=== PATIENT | male | born 1995 | race Caucasian/White ===

== ENCOUNTER 2017-08-29 09:00 | Outpatient (RCR) | payer OTHER, BC, SELFPAY | END 2017-08-29 16:14 | disposition home or self-care (01) | LOC: PT 09:00 | PROVIDERS: Family Provider Physician Assistant; PCP Physician Assistant; Visit Provider Physician Assistant | DX: M54.42 Lumbago with sciatica, left side (principal); R20.2 Paresthesia of skin | CPT/HCPCS: 97012; 97014; 97110; G0283 ==

== ENCOUNTER 2020-01-30 12:22 | Emergency (ER) | payer BC, SELFPAY ==
[2020-01-30 12:24] VITALS: BP 156/93; PULSE 85; RESP 17; TEMP 36.8; O2SAT 95; BMI 46.2
--- NOTE | 2020-01-30 12:33 | XR_ITS ---
PROCEDURE: XR CHEST 2V CLINICAL HISTORY: Cough x few days. COMPARISON: No exams were available for comparison FINDINGS: No acute bony abnormalities. The cardiomediastinal silhouette and pulmonary vascularity are within normal limits. Left basilar mild linear atelectasis or infiltrates. No suspicious nodules, or pleural effusions. There is elevation of the diaphragm, right side more than the left. IMPRESSION: 1. Left basilar small linear atelectasis or mild infiltrates. No consolidation or pleural effusion. 2. Elevated diaphragm, R>L. Dictated by: Palmer Ramirez 01/30/2020 13:21 Electronically signed by Palmer Ramirez in [facility] 01/30/2020 13:21
--- NOTE | 2020-01-30 12:33 | HMH.EDGENADL ---
ED Disposition Clinical Impression: Cough Disposition: Home, Self-Care Condition on Discharge: Good Instructions: DI for Cough -- Adult, DI for Asthma -- Adult Additional Instructions: Follow-up with your primary care provider in 2 to 3 days for reevaluation. Begin taking Zyrtec daily. This is an byik-pcd-tdasosj medication. - Critical Care Critical Care Time: No Attestation: On , the high probability of a clinically significant, sudden or life threatening deterioration of the following system(s) required my full and direct attention, intervention and personal management. The time I documented below is in addition to time spent performing reported procedures but includes the following listed in this critical care notation. Medical Decision Making - Medical Records Medical records reviewed: Yes: I reviewed the patient's medical records. - Bran Inquiry Pt receiving controlled substance: No Vital Signs: 01/30/20 12:24 01/30/20 13:06 Temperature 98.3 F Temperature Source Oral Pulse Rate [Right] 85 71 Respiratory Rate 17 Blood Pressure [Right Arm] 156/93 H 114/72 Blood Pressure Mean [Right Arm] 114 86 Blood Pressure Source [Right Arm] Automatic Cuff Blood Pressure Position [Right Arm] Sitting 02 Sat by Pulse Oximetry 95 95 Oxygen Delivery Method Room Air Orders (Tests/Meds): ORDERS Category Date Time Status XR chest 2V Stat Exams 01/30/20 12:33 Taken - Radiology Data #1 Image(s): Chest Image Reviewed: Yes I reviewed the patient's radiology image Preliminary Findings: Normal/NAD Medical Decision Narrative: Patient is afebrile here, excellent oxygen saturations on room air. Chest x-ray shows no signs of pneumonia, pneumothorax, florid pulmonary edema or widened mediastinum. Symptoms sound more consistent with asthma that might need more improved control outpatient. I recommended Zyrtec daily. PERC negative, unlikely PE. Discharged home. Follow-up with PCP in the next 2 to 3 days for reevaluation. General Adult HPI - General Stated complaint: cough,SOA,weakness,headache Time Seen by Provider: 01/30/20 12:33 Mode of Arrival: Ambulatory Source of Information: Patient Limitations: No Limitations - History of Present Illness HPI narrative: This is a 25-year-old male with a past medical history significant for asthma who presents to the emergency department for cough for about a week and a half. He initially tried Benadryl which helped slightly with his symptoms. He has now been using an albuterol inhaler which does help temporarily. He does not take medication on a regular basis for his asthma. He denies any chest pain. No objective fever at home (the highest he has measured is 99.2 ?F). No history of DVT or PE. He is not taking an allergy medication daily. No vomiting, diarrhea. - Related Data Allergies Allergy/AdvReac Type Severity Reaction Status Date / Time NO KNOWN ALLERGIES Allergy Uncoded 06/21/17 15:27 [facility] History - Hepatitis A Screen Attestation statement:: This patient has been screened for Hepatitis A risk factors. I have reviewed the patient's past medical history: Yes ROS Obtained: Yes All systems reviewed & no additional complaints Physical Exam - General General appearance: alert, in no apparent distress - Head Head exam: atraumatic, normocephalic, normal inspection - Eye Eye exam: Present: normal appearance, PERRL, EOMI - ENT ENT exam: Present: normal exam, normal oropharynx - Neck Neck exam: Present: normal inspection, full ROM, trachea midline. Absent: lymphadenopathy - Chest Chest inspection: Present: normal inspection, symmetric chest wall rise. Absent: tenderness - Respiratory Respiratory exam: Present: normal lung sounds bilaterally. Absent: respiratory distress - Cardiovascular Cardiovascular exam: Present: regular rate, normal rhythm - Neurological Exam Neurological exam: Present: alert, oriented X3
[2020-01-30 13:06] VITALS: BP 114/72; PULSE 71; O2SAT 95
[2020-01-30 13:24] VITALS: BP 114/72; PULSE 71; RESP 17; TEMP 36.8; O2SAT 95
== END 2020-01-30 13:25 | disposition home or self-care (01) ==
PROVIDERS: Emergency Provider Emergency Medicine
DX: R05 Cough (principal); R51 Headache; R03.0 Elevated blood-pressure reading, without diagnosis of hypertension
CPT/HCPCS: 71046; 99282

== ENCOUNTER → 2020-02-13 13:28 | Outpatient (CLI) | payer BC, SELFPAY ==
--- NOTE | 2020-02-13 13:35 | XR_ITS ---
PROCEDURE: XR CHEST 2V CLINICAL HISTORY: BRONCHOPNEUMONIA COMPARISON: CR XR CHEST 2V from 01/30/2020 FINDINGS: The cardiomediastinal silhouette and pulmonary vascularity are within normal limits. The lungs are clear without infiltrates, suspicious nodules, or pleural effusions. Calcified granuloma is present in the right lower lung zone with calcified nodes in the right hilum and calcified granulomas in the right upper lobe. No acute bony findings. IMPRESSION: No acute findings. Dictated b Contreras Garcia MD 02/13/2020 13:49 Contreras Garcia MD in [place] 02/13/2020 13:49
== END ==
PROVIDERS: PCP Nurse Practitioner Family; Visit Provider Nurse Practitioner Family
DX: J18.0 Bronchopneumonia, unspecified organism (principal)
CPT/HCPCS: 71046; 94010

== ENCOUNTER 2024-05-20 09:24 | Emergency (ER) | payer OTHER, SELFPAY ==
[2024-05-20 09:41] VITALS: BP 145/83; PULSE 66; RESP 18; TEMP 36.6; O2SAT 100; BMI 42.1
--- NOTE | 2024-05-20 09:43 | EXP.UTC ---
Discharge Plan Disposition Patient Disposition: Home, Self-Care Condition: Good Prescriptions Prescriptions: New methylprednisolone 4 mg Tablets,Dose Pack 4 mg PO DIRECTED 6 Days Qty: 21 0RF Rx Instructions: Take 1 pack as directed for 6 days jwmrpsbxbtrsuma-jiktvwjtk-CB [Bromfed DM] 2-30-10 mg/5 mL Syrup 5 ml PO Q6H PRN (Reason: Cough) Qty: 240 0RF amoxicillin-pot clavulanate 875-125 mg Tablet 1 tab PO Q12H Qty: 20 0RF guaifenesin [Mucinex] 600 mg tablet extended release 12hr 600 - 1,200 mg PO BIDP PRN (Reason: Congestion) Qty: 30 0RF Referrals Follow up/Referrals: Luis Abreu MD [Primary Care Provider] - See instructions Activity Restrictions/Add. Instructions Additional Instructions/Restrictions: Drink plenty of fluids. Take tylenol or ibuprofen for pain or fever. Take the medications as directed. Follow up with your regular doctor. GO TO THE ER FOR ANY WORSENING SYMPTOMS Don't start the oral steroids (medrol dose pack) until tomorrow since you had the shot here Clinical Impressions Clinical Impression: Sinusitis Instructions Patient Instructions: Sinusitis, DI for Sinusitis, Methylprednisolone, Ceftriaxone Injection, Dexamethasone Injection Print Language Print Language: Hungarian Discharge ED Provider: Martell Miller [facility] HPI General Stated complaint: sinus congestion, pressure, H/A Mode of Arrival: Ambulatory Source of Information: Patient Time Seen by Provider: 05/20/24 09:43 Description of Symptoms (Recalled from Triage Doc. by RN): SINUS INFECTION , CONGESTION AND PRESSURE HEENT Symptoms (Recalled from RN notes): Yes Resp Symptoms (Recalled from RN notes): No Skin Symptoms (Recalled from RN notes): No MS Symptoms (Recalled from RN notes): No Functional Status (Recalled from RN notes): WNL Related Data Previous Rx's ?Medication ?Instructions ?Recorded amoxicillin 875 mg-potassium 1 tab PO Q12H #20 tabs 05/20/24 clavulanate 125 mg tablet siqciauejrflgfj-ufuomkrvmktcwaw-QN 5 ml PO Q6H PRN Cough #240 mL 05/20/24 2 mg-30 mg-10 mg/5 mL oral syrup (Bromfed DM) guaifenesin 600 mg tablet, 600 - 1,200 mg (1 - 2 x 600 mg) PO 05/20/24 extended release 12 hr (Mucinex) BIDP PRN Congestion #30 tabs methylprednisolone 4 mg tablets in 4 mg PO DIRECTED 6 days #21 tabs 05/20/24 a dose pack Allergies Allergy/AdvReac Type Severity Reaction Status Date / Time No Known Allergies Allergy Verified 01/23/24 15:07 Worker's Comp Is this a Worker's Comp case?: No [facility] Disclaimer: The information contained in this section may have been updated after the patient was seen, as this information can be updated by other users. Medical History Low back pain Surgical History History of lateral meniscus repair of right knee History of cholecystectomy Previous back surgery Family History Other Hypertension Social History Smoking Status: Never smoker alcohol intake: never substance use type: denies use current occupational status: employed Travel in the last 8 weeks: None housing: house ROS Obtained: Yes All systems reviewed & no additional complaints except as documented Constitutional Constitutional: Reports poor appetite Eyes Eyes: Reports system reviewed and no additional complaints, except as documented ENT Ears, Nose, Mouth, and Throat: Reports as per HPI Cardiovascular Cardiovascular: Reports system reviewed and no additional complaints, except as documented and Denies chest pain Respiratory Respiratory: Denies shortness of breath, Denies chest congestion, Reports cough, Denies stridor and Denies wheezing Gastrointestinal Gastrointestingal: Reports system reviewed and no additional complaints, except as documented; Denies abdominal pain, diarrhea or vomiting Musculoskeletal Musculoskeletal: Reports system reviewed and no additional complaints, except as documented and Denies arthralgias Integumentary/Breasts Skin/Breast: Reports system reviewed and no additional complaints, except as documented and Denies rash Neurologic Neurologic: Denies paresthesias Allergic/Immunologic Allergic/Immunologic: Denies wheezing Physical Exam General General appearance: alert and in no apparent distress Eye Eye exam: Present normal appearance, PERRL and EOMI ENT ENT exam: Present mucous membranes moist and normal external ear exam Expanded ENT Exam External ear exam: Present normal external inspection TM/Canal exam: Bilateral TM: erythema and bulging Nose exam: Absent sinus tenderness Nasal speculum exam: Bilateral: normal Mouth exam: Present normal external inspection; Absent drooling Teeth exam: Present normal inspection Throat exam: Present tonsillar erythema and tonsillomegaly Neck Neck exam: Present normal inspection, full ROM and trachea midline; Absent tenderness, lymphadenopathy or thyromegaly Chest Chest inspection: Present normal inspection and symmetric chest wall rise; Absent tenderness or rash Respiratory Respiratory exam: Present normal lung sounds bilaterally; Absent respiratory distress, wheezes, stridor or accessory muscle use Cardiovascular Cardiovascular exam: Present regular rate, normal rhythm and normal heart sounds Abdominal Exam Abdominal exam: Present soft; Absent distention, tenderness, guarding, rebound or rigidity Extremities Exam Extremities exam: Present normal inspection, full ROM and normal capillary refill; Absent tenderness or calf tenderness Back Exam Back exam: Present normal inspection and full ROM; Absent tenderness Neurological Exam Neurological exam: Present alert and oriented X3 Psychiatric Psychiatric exam: Present normal affect and normal mood Skin Skin exam: Present warm, dry, intact and normal color Lymphatic Lymphatic Findings: no adenopathy Medical Decision Making Medical Records Medical records reviewed: No I reviewed the patient's medical records. Screening: Per USPSTF and CDC recommendations, given the prevalence of disease in our region, it is our hospital?s policy to screen for HIV and viral Hepatitis for all patients aged 18 and over and those with ongoing risk factors. Bran Inquiry Pt receiving controlled substance: No Vital Signs: 05/20/24 09:41 Temperature 97.9 F Temperature Source Oral Pulse Rate [Left Radial] 66 Respiratory Rate 18 Blood Pressure [Left Arm] 145/83 H Blood Pressure Mean [Left Arm] 103 02 Sat by Pulse Oximetry 100 Lab Data Lab results reviewed: Yes I reviewed the patient's lab results.
[2024-05-20] MEDS: DEXAMETHASONE 4MG/ML 1ML VIAL 8 MG IM (10:40)
[2024-05-20] MEDS: cefTRIAXone 1GM VIAL 1 GM IM (10:40)
[2024-05-20] MEDS: LIDOCAINE 1% 5ML PF VIAL IM (10:41)
[2024-05-20 11:14] VITALS: BP 145/83; PULSE 66; RESP 18; TEMP 36.6
== END 2024-05-20 11:14 | disposition home or self-care (01) ==
PROVIDERS: Emergency Provider Nurse Practitioner Family; PCP Family Medicine
DX: J01.90 Acute sinusitis, unspecified (principal); R09.81 Nasal congestion; R51.9 Headache, unspecified; R63.8 Other symptoms and signs concerning food and fluid intake; R05.9 Cough, unspecified
CPT/HCPCS: 99212; G0381; J0696; J1100

== ENCOUNTER 2024-07-29 15:54 | Emergency (ER) | payer OTHER, SELFPAY ==
[2024-07-29] VITALS (8 sets, daily range): BP systolic 127–155; BP diastolic 70–94; PULSE 56–68; RESP 20–26; TEMP 36.4–36.6; O2SAT 94–99; BMI 41.3
--- NOTE | 2024-07-29 16:11 | CT_ITS ---
PROCEDURE INFORMATION: Exam: CT Abdomen And Pelvis With Contrast Exam date and time: 07/29/2024 4:43 PM Age: 29 years old Clinical indication: Abdominal pain; Additional info: Numbness/pain TECHNIQUE: Imaging protocol: Computed tomography of the abdomen and pelvis with contrast. Radiation optimization: All CT scans at this facility use at least one of these dose optimization techniques: automated exposure control; mA and/or kV adjustment per patient size (includes targeted exams where dose is matched to clinical indication); or iterative reconstruction. Contrast material: ISOVUE; Contrast volume: 75 ml; Contrast route: IV; COMPARISON: CR XR CHEST 2V 02/13/2020 1:37 PM FINDINGS: Liver: Normal. No mass. Gallbladder and biliary ducts: Gallbladder not visualized. No ductal dilation. Pancreas: Normal. No ductal dilation. Spleen: Normal. No splenomegaly. Adrenal glands: Normal. No mass. Kidneys and ureters: Normal. No hydronephrosis. Stomach and bowel: 1.5 cm noninflamed epiploic appendage adjacent to the sigmoid colon. Appendix: No evidence of appendicitis. Intraperitoneal space: Unremarkable. No free air. No significant fluid collection. Vasculature: Unremarkable. No abdominal aortic aneurysm. Lymph nodes: Unremarkable. No enlarged lymph nodes. Urinary bladder: Nolan catheter within the urinary bladder. Reproductive: Unremarkable as visualized. Bones/joints: Unremarkable. No acute fracture. Soft tissues: Unremarkable. IMPRESSION: 1. No acute findings. 2. 1.5 cm noninflamed sigmoid region epiploic appendage.
[2024-07-29] MEDS: MORPHINE 4MG/ML SYRINGE 4 MG IV ×2 (16:19→19:52)
[2024-07-29] MEDS: ONDANSETRON 4MG/2ML VIAL 4 MG IV ×2 (16:19→19:52)
[2024-07-29] MEDS: LIDOCAINE 2% UROJET 10ML 10 ML TP (16:25)
[2024-07-29 16:35] LABS: Albumin Level 4.2 g/dl (3.5-5.0); Chloride 105 mmol/L (98-107); Potassium 4.1 mmoL/L (3.5-5.1); Sodium 137 mmol/L (136-145)
[2024-07-29 16:36] LABS: Basophils % 0.3 % (0.1-2.0); Hematocrit 48.2 % (42.0-52.0); Hemoglobin 16.8 g/dL (14.1-18.0); Lymphocytes # 0.9 K/mm3 (0.7-4.5); Lymphocytes % 11.7 % (10-50); Mean Corpuscular HGB Conc 34.9 g/dL (31.8-35.4); Mean Corpuscular Hemoglobin 30.5 pg (27.0-31.2); Mean Corpuscular Volume 87.6 fl (80-94); Mean Platelet Volume 9.9 fl (7.4-10.4); Monocytes # 0.2 K/mm3 (0.1-1.0); Monocytes % 2.9 % (1.7-9.3); Neutrophils # 6.5 K/mm3 (1.8-7.8); Neutrophils % 84.3 % (37.0-80.0); Platelet Count 258 K/mm3 (142-424); Red Cell Distribution Width 12.5 % (11.5-17.5); White Blood Count 7.7 K/mm3 (4.8-10.8)
[2024-07-29 16:37] LABS: Blood Urea Nitrogen 21 mg/dl (9-20); Creatinine Clearance Estimated 303 mL/min (50-200); Estimated Glomerular Filt Rate 116 ml/min (>60); GFR (African American) 140 ML/MIN (>60)
[2024-07-29 16:38] LABS: Alanine Aminotransferase 58 U/L (12-78); Albumin/Globulin Ratio 1.6 (1.1-1.8); Alkaline Phosphatase 34 U/L (38-126); Anion Gap 12.1 mEq/L (5-15); Aspartate Amino Transferase 48 U/L (17-59); Bilirubin,Total 0.5 mg/dl (0.2-1.3); Calcium 9.2 mg/dl (8.4-10.2); Carbon Dioxide 24 mmol/L (22.0-30.0); Globulin 2.6 g/dL (1.3-3.2); Glucose 111 mg/dl (74-100); Lipase 48 U/L (23-300); Total Protein,Serum 6.8 g/dl (6.3-8.2)
[2024-07-29] MEDS: SODIUM CHLORIDE 0.9% 10ML SYR (RAD ONLY) 10 ML IV (16:52)
[2024-07-29] MEDS: IOPAMIDOL-370 (76%);100ML BOTTLE 75 ML IV (16:52)
[2024-07-29 17:00] LABS: Erythrocyte Sedimentation Rate 5 mm/hr (0-15)
--- NOTE | 2024-07-29 17:03 | ED_ITS ---
Discharge Plan Disposition Patient Disposition: Xfer Other Condition: Good Prescriptions Prescriptions: No Action prednisone 50 mg tablet 50 mg PO DAILY Qty: 7 0RF tizanidine 4 mg tablet 4 mg PO BID Qty: 60 2RF hydrocodone-acetaminophen 5-325 mg tablet 1 tab PO Q4-6H PRN (Reason: pain) Qty: 30 0RF lidocaine 5 % adhesive patch,medicated 1 patch topical DAILY Qty: 15 0RF Rx Instructions: leave on most painful area for up to 12 hrs Referrals Follow up/Referrals: Luis Abreu MD [Primary Care Provider] - See instructions Clinical Impressions Clinical Impression: Cauda equina compression Stand Alone Forms Stand Alone Forms: Transfer Record - ED Instructions Patient Instructions: DI for Low Back Pain Print Language Print Language: Swedish Discharge ED Provider: Salinas Flores General Adult HPI <Karen Dave (ED), OUTDOOR EMERGENCY CARE TECHNICIAN - Last Filed: 07/29/24 19:25> General Chief complaint: Back Pain/Injury Stated complaint: leg/back pain waist and R side numb cant urinate Time Seen by Provider: 07/29/24 16:00 Mode of Arrival: Wheelchair Source of Information: Patient and Spouse Limitations: Physical Limitations Description of Symptoms (Recalled from ER Triage Doc. by RN): Pt c/o weakness, numbness from pelvis down BLE. States he has been unable to urinate since 8am today. He is diaphoretic and can feel sensation but it is very dull and numb . He is very diminished in lifting legs. Denies any trauma, falls, or specific injury. He does have previous lumbar spine surgery with Dr. Kirk approx 10yr ago. States he saw Dr. Abreu on for the back pain and was given Taft 5, Diclofenac 75mg BID, Zanaflex 4mg BID, Lidocaine patches, and Prednisone 50mg daily. States these are barely helping. Today, the pain and numbness has progreessivly gottten worse. History of Present Illness HPI narrative: This is a 29-year-old male who presents to the ED today for complaint of weakness and numbness from his pelvis down both of his legs. States that he is having difficulty urinating since 8:00 AM. States that he feels like he has to pee and he has tried but cannot. He is having difficulty lifting his legs to get on the stretcher. He says this started on with numbness when he got up off the couch and this started. He saw his primary care who gave him Taft, diclofenac, tizanidine, lidocaine and prednisone. He has not benefited from these medications. He says that the pain has gotten worse as well as the numbness. He says he has had normal bowel movements. He can feel he just is unable to urinate. Of note he did have lumbar spinal surgery 10 years ago. He says this was done in [place]. Related Data Previous Rx's ?Medication ?Instructions ?Recorded hydrocodone 5 mg-acetaminophen 325 1 tab PO Q4-6H PRN pain #30 tabs 07/26/24 mg tablet lidocaine 5 % topical patch 1 patch topical DAILY pain #15 ea 07/26/24 prednisone 50 mg tablet 50 mg PO DAILY #7 tabs 07/26/24 tizanidine 4 mg tablet 4 mg PO BID #60 tabs 07/26/24 Allergies Allergy/AdvReac Type Severity Reaction Status Date / Time No Known Allergies Allergy Verified 07/26/24 11:15 [facility] <Karen Dave (ED), OUTDOOR EMERGENCY CARE TECHNICIAN - Last Filed: 07/29/24 19:25> [facility] Disclaimer: The information contained in this section may have been updated after the patient was seen, as this information can be updated by other users. Medical History Low back pain Surgical History History of lateral meniscus repair of right knee History of cholecystectomy Previous back surgery Family History Other Hypertension Social History Smoking Status: Never smoker alcohol intake: never substance use type: denies use current occupational status: employed Travel in the last 8 weeks: None housing: house Have you lived/traveled outside US in past 30 days?: No Contact w/someone who lives/traveled outside US past 30 days?: No Exposure to someone with infectious disease in past 14 days?: No Do you have a fever (greater than 100.4 F or 38 C)?: No Have you tested positive for COVID-19: No Exposed to someone with COVID-19 in past 14 days?: No Do you have a sore throat?: No Do you have a cough?: No Do you have any weakness?: No Do you have any diarrhea?: No Are you experiencing any unusual bleeding?: No Do you have any muscle aches/pain?: No Do you have any abdominal pain?: No Are you experiencing loss of taste or smell?: No Other Medical History Have you received the Flu Vaccine for this season: No Have you received the Pneumonia Vaccine: No <Karen Dave (ED), OUTDOOR EMERGENCY CARE TECHNICIAN - Last Filed: 07/29/24 19:25> ROS Obtained: Yes Systems reviewed as appropriate & no additional complaints except as documented Constitutional Constitutional: Reports as per HPI Physical Exam <Karen Dave (ED), OUTDOOR EMERGENCY CARE TECHNICIAN - Last Filed: 07/29/24 19:25> General General appearance: alert, anxious and in distress Comment: Diaphoretic due to pain Head Head exam: atraumatic and normocephalic Eye Eye exam: Present normal appearance, PERRL and EOMI ENT ENT exam: Present normal oropharynx and mucous membranes moist Neck Neck exam: Present full ROM and trachea midline Respiratory Respiratory exam: Present normal lung sounds bilaterally Cardiovascular Cardiovascular exam: Present regular rate, normal rhythm, normal heart sounds, +S1 and +S2 Abdominal Exam Abdominal exam: Present soft and normal bowel sounds exam: Present other (We did a bladder scan which showed greater than a liter in his bladder this is before voiding) Extremities Exam Extremities exam: Present normal inspection, normal capillary refill and other (Weakness and bilateral lower extremity) Back Exam Back exam: Present normal inspection Neurological Exam Neurological exam: Present alert and oriented X3 Skin Skin exam: Present warm, dry and intact Medical Decision Making <Karen Dave (ED), OUTDOOR EMERGENCY CARE TECHNICIAN - Last Filed: 07/29/24 19:25> Medical Records Screening: Per USPSTF and CDC recommendations, given the prevalence of disease in our region, it is our hospital?s policy to screen for HIV and viral Hepatitis for all patients aged 18 and over and those with ongoing risk factors. Bran Inquiry Pt receiving controlled substance: No Bran was queried for this patient: No Vital Signs: 07/29/24 15:56 07/29/24 16:04 07/29/24 16:31 Temperature 97.6 F Temperature Source Oral Pulse Rate 68 64 Pulse Rate [Right] 67 Respiratory Rate 26 H Blood Pressure 155/79 H 141/88 H Blood Pressure [Right Arm] 155/77 H Blood Pressure Mean [Right Arm] 103 Blood Pressure Source [Right Arm] Automatic Cuff 02 Sat by Pulse Oximetry 99 98 99 Oxygen Delivery Method Room Air Room Air Room Air 07/29/24 17:00 07/29/24 17:30 07/29/24 18:00 Temperature Temperature Source Pulse Rate 63 66 67 Pulse Rate [Right] Respiratory Rate Blood Pressure 139/73 151/94 H 142/76 H Blood Pressure [Right Arm] Blood Pressure Mean [Right Arm] Blood Pressure Source [Right Arm] 02 Sat by Pulse Oximetry 95 97 96 Oxygen Delivery Method Room Air Room Air 07/29/24 20:31 07/29/24 21:09 Temperature 97.8 F Temperature Source Pulse Rate 58 L 56 L Pulse Rate [Right] Respiratory Rate 20 Blood Pressure 127/70 142/76 H Blood Pressure [Right Arm] Blood Pressure Mean [Right Arm] Blood Pressure Source [Right Arm] 02 Sat by Pulse Oximetry 95 Oxygen Delivery Method Room Air Lab Data Lab Results 07/29/24 16:13: WBC 7.7, RBC 5.50, Hgb 16.8, Hct 48.2, MCV 87.6, MCH 30.5, MCHC 34.9, RDW 12.5, Plt Count 258, MPV 9.9, Neut % (Auto) 84.3 H, Lymph % (Auto) 11.7, [place] % (Auto) 2.9, Eos % (Auto) 0.0 L, Baso % (Auto) 0.3, Neut # (Auto) 6.5, Lymph # (Auto) 0.9, [place] # (Auto) 0.2, Eos # (Auto) 0.0, Baso # (Auto) 0.0, ESR 5, Sodium 137, Potassium 4.1, Chloride 105, Carbon Dioxide 24, Anion Gap 12.1, BUN 21 H, Creatinine 0.80, Estimated Creat Clear 303 H, Estimated GFR 116, Est GFR ( Amer) 140, Glucose 111 H, Calcium 9.2, Total Bilirubin 0.5, AST 48, ALT 58, Alkaline Phosphatase 34 L, C-Reactive Protein < 0.1, Total Protein 6.8, Albumin 4.2, Globulin 2.6, Albumin/Globulin Ratio 1.6, Lipase 48, HCV Ab SARABJIT w/Rflx PCR Qn Negative, HIV Ag/Ab Combo Qual Negative 07/29/24 16:13 07/29/24 16:13 Orders (Tests/Meds): ED MEDICATIONS Discontinued Medications Generic Name Dose Route Start Last Admin Trade Name Tonnyq PRN Reason Stop Dose Admin Iopamidol 75 ml 07/29/24 16:51 07/29/24 16:52 Iopamidol-370 (76%);100ml Bottle IV 07/29/24 16:52 75 ml ONCE ONE Administration Lidocaine HCl 10 ml 07/29/24 16:22 07/29/24 16:25 Lidocaine 2% Urojet 10ml TP 07/29/24 16:23 10 ml ONCE ONE Administration Morphine Sulfate 4 mg 07/29/24 16:13 07/29/24 16:19 Morphine 4mg/Ml Syringe IV 07/29/24 16:14 4 mg ONCE ONE Administration Morphine Sulfate 4 mg 07/29/24 19:20 07/29/24 19:52 Morphine 4mg/Ml Syringe IV 07/29/24 19:21 4 mg ONCE ONE Administration Ondansetron HCl 4 mg 07/29/24 16:13 07/29/24 16:19 Ondansetron 4mg/2ml Vial IV 07/29/24 16:14 4 mg ONCE ONE Administration Ondansetron HCl 4 mg 07/29/24 19:20 07/29/24 19:52 Ondansetron 4mg/2ml Vial IV 07/29/24 19:21 4 mg ONCE ONE Administration Sodium Chloride 10 ml 07/29/24 16:51 07/29/24 16:52 Sodium Chloride 0.9% 10ml Syr (Rad Only) IV 07/29/24 16:52 10 ml ONCE ONE Administration ORDERS Category Date Time Status CT abdomen pelvis w con Stat Cat Scan 07/29/24 16:11 Completed CBC [Complete Blood Count Auto Diff] Stat Lab 07/29/24 16:13 Completed CRP [C-Reactive Protein] Stat Lab 07/29/24 16:13 Completed Comprehensive Metabolic Panel Stat Lab 07/29/24 16:13 Completed ESR [Erythrocyte Sedimentation Rate] Stat Lab 07/29/24 16:13 Completed HIV Combo Stat Lab 07/29/24 16:13 Completed Hepatitis C Ab Qual. W/ RFX Stat Lab 07/29/24 16:13 Completed Lipase Stat Lab 07/29/24 16:13 Completed Medical Decision Narrative: Insert review patient is a 29-year-old male presenting to the emergency department for evaluation of low back pain and paresthesias from pelvis down to his toes since with urinary retention. Patient is hemodynamically stable however diaphoretic from pain. Differential diagnosis includes cauda equina, lumbar sprain or strain among others. Workup will be conducted with hematologic labs, specific imaging, provocative tests. Initial inventions include pain medication and CT scans. Initial workup reviewed by me hematologic labs are unremarkable. Imaging informally interpreted by me and remarkable for nothing acute. For formal imaging read please see radiology reads. Upon repeat evaluation patient's pain has improved with the morphine. I talked to transfer center and the neuro surgery DrNoreen And they both agreed to bring the patient to [facility] ER. They did override diversion for this patient. Patient aware and will go back EMS <Salinas Flores MD - Last Filed: 08/06/24 00:40> Vital Signs: 07/29/24 15:56 07/29/24 16:04 07/29/24 16:31 Temperature 97.6 F Temperature Source Oral Pulse Rate 68 64 Pulse Rate [Right] 67 Respiratory Rate 26 H Blood Pressure 155/79 H 141/88 H Blood Pressure [Right Arm] 155/77 H Blood Pressure Mean [Right Arm] 103 Blood Pressure Source [Right Arm] Automatic Cuff 02 Sat by Pulse Oximetry 99 98 99 Oxygen Delivery Method Room Air Room Air Room Air 07/29/24 17:00 07/29/24 17:30 07/29/24 18:00 Temperature Temperature Source Pulse Rate 63 66 67 Pulse Rate [Right] Respiratory Rate Blood Pressure 139/73 151/94 H 142/76 H Blood Pressure [Right Arm] Blood Pressure Mean [Right Arm] Blood Pressure Source [Right Arm] 02 Sat by Pulse Oximetry 95 97 96 Oxygen Delivery Method Room Air Room Air 07/29/24 20:31 07/29/24 21:09 Temperature 97.8 F Temperature Source Pulse Rate 58 L 56 L Pulse Rate [Right] Respiratory Rate 20 Blood Pressure 127/70 142/76 H Blood Pressure [Right Arm] Blood Pressure Mean [Right Arm] Blood Pressure Source [Right Arm] 02 Sat by Pulse Oximetry 95 Oxygen Delivery Method Room Air Lab Data Lab Results 07/29/24 16:13: WBC 7.7, RBC 5.50, Hgb 16.8, Hct 48.2, MCV 87.6, MCH 30.5, MCHC 34.9, RDW 12.5, Plt Count 258, MPV 9.9, Neut % (Auto) 84.3 H, Lymph % (Auto) 11.7, [place] % (Auto) 2.9, Eos % (Auto) 0.0 L, Baso % (Auto) 0.3, Neut # (Auto) 6.5, Lymph # (Auto) 0.9, [place] # (Auto) 0.2, Eos # (Auto) 0.0, Baso # (Auto) 0.0, ESR 5, Sodium 137, Potassium 4.1, Chloride 105, Carbon Dioxide 24, Anion Gap 12.1, BUN 21 H, Creatinine 0.80, Estimated Creat Clear 303 H, Estimated GFR 116, Est GFR ( Amer) 140, Glucose 111 H, Calcium 9.2, Total Bilirubin 0.5, AST 48, ALT 58, Alkaline Phosphatase 34 L, C-Reactive Protein < 0.1, Total Protein 6.8, Albumin 4.2, Globulin 2.6, Albumin/Globulin Ratio 1.6, Lipase 48, HCV Ab SARABJIT w/Rflx PCR Qn Negative, HIV Ag/Ab Combo Qual Negative Orders (Tests/Meds): ED MEDICATIONS Discontinued Medications Generic Name Dose Route Start Last Admin Trade Name Tonnyq PRN Reason Stop Dose Admin Iopamidol 75 ml 07/29/24 16:51 07/29/24 16:52 Iopamidol-370 (76%);100ml Bottle IV 07/29/24 16:52 75 ml ONCE ONE Administration Lidocaine HCl 10 ml 07/29/24 16:22 07/29/24 16:25 Lidocaine 2% Urojet 10ml TP 07/29/24 16:23 10 ml ONCE ONE Administration Morphine Sulfate 4 mg 07/29/24 16:13 07/29/24 16:19 Morphine 4mg/Ml Syringe IV 07/29/24 16:14 4 mg ONCE ONE Administration Morphine Sulfate 4 mg 07/29/24 19:20 07/29/24 19:52 Morphine 4mg/Ml Syringe IV 07/29/24 19:21 4 mg ONCE ONE Administration Ondansetron HCl 4 mg 07/29/24 16:13 07/29/24 16:19 Ondansetron 4mg/2ml Vial IV 07/29/24 16:14 4 mg ONCE ONE Administration Ondansetron HCl 4 mg 07/29/24 19:20 07/29/24 19:52 Ondansetron 4mg/2ml Vial IV 07/29/24 19:21 4 mg ONCE ONE Administration Sodium Chloride 10 ml 07/29/24 16:51 07/29/24 16:52 Sodium Chloride 0.9% 10ml Syr (Rad Only) IV 07/29/24 16:52 10 ml ONCE ONE Administration ORDERS Category Date Time Status CT abdomen pelvis w con Stat Cat Scan 07/29/24 16:11 Completed CBC [Complete Blood Count Auto Diff] Stat Lab 07/29/24 16:13 Completed CRP [C-Reactive Protein] Stat Lab 07/29/24 16:13 Completed Comprehensive Metabolic Panel Stat Lab 07/29/24 16:13 Completed ESR [Erythrocyte Sedimentation Rate] Stat Lab 07/29/24 16:13 Completed HIV Combo Stat Lab 07/29/24 16:13 Completed Hepatitis C Ab Qual. W/ RFX Stat Lab 07/29/24 16:13 Completed Lipase Stat Lab 07/29/24 16:13 Completed Medical Decision Narrative: Insert review patient is a 29-year-old male presenting to the emergency department for evaluation of low back pain and paresthesias from pelvis down to his toes since with urinary retention. Patient is hemodynamically stable however diaphoretic from pain. Differential diagnosis includes cauda equina, lumbar sprain or strain among others. Workup will be conducted with hematologic labs, specific imaging, provocative tests. Initial inventions include pain medication and CT scans. Initial workup reviewed by me hematologic labs are unremarkable. Imaging informally interpreted by me and remarkable for nothing acute. For formal imaging read please see radiology reads. Upon repeat evaluation patient's pain has improved with the morphine. I talked to transfer center and the neuro surgery DrNoreen And they both agreed to bring the patient to [facility] ER. They did override diversion for this patient. Patient aware and will go back EMS I was consulted by the ALEXANDREA, and we discussed the complexity of the problems being addressed.I approved the treatment and management plan for this patient?s care in the Emergency Department, thus performing a substantive portion of the medical decision making.Signed, Salinas Flores MD [facility] <Karen Dave (ED), OUTDOOR EMERGENCY CARE TECHNICIAN - Last Filed: 07/29/24 19:25> Critical Care Time Critical Care Time: No
[2024-07-29 20:52] LABS: C-Reactive Protein < 0.1 mg/L (0-4)
--- NOTE | 2024-07-29 20:57 | PC.NURSE ---
Received a call from lab in regards to the CRP and Pily explained the resulting and that she also taken a sample to [facility] and it resulted low.
[2024-07-29 21:24] LABS: HIV Combo NEGATIVE (Negative)
[2024-07-29 21:32] LABS: Hepatitis C Ab Qual. W/ RFX NEGATIVE (Negative)
== END 2024-07-29 21:00 | disposition other institution (70) ==
PROVIDERS: Nurse Practitioner; Emergency Provider Emergency Medicine; PCP Family Medicine
DX: G83.4 Cauda equina syndrome (principal); R20.2 Paresthesia of skin; R53.1 Weakness; R33.9 Retention of urine, unspecified; R61 Generalized hyperhidrosis; M54.50 Low back pain, unspecified
CPT/HCPCS: 51702; 74177; 80053; 83690; 85025; 85651; 86140; 86803; 87389; 96374; 96375; 99285; J2270; J2405; Q9967